=== PATIENT | female | born 1990 | race Two or more races ===

== ENCOUNTER 2016-06-05 20:08 | Emergency (ER) | payer OTHER ==
--- NOTE | ~2016-06-05 | CR63 ---
[facility]. [facility] A Service of [facility] & [facility] RADIOLOGY TEXT RESULTS PATIENT: CHELY JENKINS LOCATION: SED : 86 UNIT #: [id number] AGE: [address]: MAURISIO BUTT SEX: F ORDER DR: [id number] [address] [address] [id number] MR#: [id number] Acc #: [id number] NAME: CHELY JENKINS : 1990 SEX: F STUDY DATE/TIME: 06/05/2016 20:59 UNIT: SED ROOM: STUDY DESCRIPTION: CR Chest 2 View Attending Physician: Maurisio Butt Ordering Physician: Alirio Larios M.D. MEDICAL IMAGING REPORT This report is preliminary unless electronic signature is present. EXAM PA and lateral chest, 2 views, 06/05/2016 HISTORY Cough for 1 week. FINDINGS There is mild scoliosis but the exam is otherwise normal. There is no infiltrate or effusion or pneumothorax, or a suspicious nodule. Heart size normal. IMPRESSION Mild scoliosis, otherwise normal. Dictated by... Inderjit Cook M.D. THIS IS AN ELECTRONICALLY VERIFIED REPORT Inderjit Cook M.D. at 06/09/2016 4:33 PM TEV/psc TD: 06/06/2016 02:37 JOB #: [id number] MEDICAL IMAGING REPORT
[2016-06-05 20:26] LABS: INFLUENZA A NEG (NEG); INFLUENZA B NEG (NEG)
== END 2016-06-05 21:49 | disposition home or self-care (01) ==
LOC: SED 20:08
PROVIDERS: Nurse Practitioner
DX: J06.9 Acute upper respiratory infection, unspecified (principal)
CPT/HCPCS: 71020; 87651; 87804; 99283